=== PATIENT | female | born 1955 | race Two or more races ===

== ENCOUNTER 2016-02-29 08:42 | Emergency (ER) | payer MEDICAID, OTHER ==
[~2016-02-29] VITALS: Ht 154.9 cm; Wt 69.4 kg
[2016-02-29] MEDS ORDERED: TRIA1CAP6 PO (09:26)
[2016-02-29] MEDS ORDERED: AMLO5TAB2 PO (09:26)
[2016-02-29] MEDS ORDERED: BENA20TA2 PO (09:26)
[2016-02-29] MEDS ORDERED: KETOROLAC TROMETHAMINE 15 MG/ML VIAL ONE ×2 (09:58→11:45)
[2016-02-29] MEDS ORDERED: IV SET PRIMARY 1 EA INFUS.SET MC ONE (09:58)
[2016-02-29] MEDS ORDERED: IV NS 0.9% 1,000 ML ONE (09:58)
[2016-02-29] MEDS ORDERED: ONDANSETRON HCL/PF 4 MG/2 ML VIAL ONE (09:58)
[2016-02-29] MEDS ORDERED: KETOROLAC TROMETHAMINE INJ 30 MG/ML VIAL IV ONE (10:00)
[2016-02-29] MEDS ORDERED: IV NS 0.9% 500 ML BAG IV ONE (10:00)
[2016-02-29] MEDS ORDERED: ONDANSETRON HCL/PF 4 MG/2 ML VIAL IVP ONE (10:00)
[2016-02-29 10:08] LABS: BASOPHILS % (AUTO) 0.2 % (0.0-2.0); DIFF TOTAL % 100 %; EOSINOPHILS # (AUTO) 0.1 /CMM (0.0-0.7); EOSINOPHILS % (AUTO) 1.3 % (0.0-6.0); HEMATOCRIT 41 % (33-45); HEMOGLOBIN 14.1 g/dL (11.5-14.8); LYMPHOCYTES # (AUTO) 1.2 /CMM (0.8-4.8); LYMPHOCYTES % (AUTO) 24.7 % (20.0-44.0); MEAN CORPUSCULAR HEMOGLOBIN 29 PG (26.0-33.0); MEAN CORPUSCULAR HGB CONC 35 g/dl (31.0-36.0); MEAN CORPUSCULAR VOLUME 85 fL (82-100); MONOCYTES # (AUTO) 0.4 /CMM (0.1-1.30); MONOCYTES % (AUTO) 7.6 % (2.0-12.0); NEUTROPHILS # (AUTO) 3.3 /CMM (1.8-8.9); NEUTROPHILS % (AUTO) 66.2 % (43.0-81.0); PLATELET COUNT (AUTO) 249 /CMM (150-450); RED BLOOD CELL COUNT(AUTO) 4.83 MIL/uL (4.0-5.2); WHITE BLOOD COUNT (AUTO) 4.9 K/uL (4.3-11.0)
[2016-02-29 10:13] LABS: KETONES,URINE NEGATIVE (NEGATIVE); LEUKOCYTE ESTERASE ,URINE NEGATIVE (NEGATIVE); PH,URINE 6.5 (5.0-8.0)
[2016-02-29 10:14] LABS: ADD UA MICROSCOPIC YES
[2016-02-29 10:16] LABS: CALCIUM, SERUM 8.5 mg/dL (8.5-10.1); CREATININE 0.7 mg/dL (0.6-1.3); POTASSIUM 3.6 mmol/L (3.5-5.1)
[2016-02-29 10:20] LABS: ADD URINE CULTURE NO; RBC,URINE 0-3 /HPF (0-2); WBC,URINE NONE SEEN /HPF (0-3)
[2016-02-29 10:21] LABS: ALBUMIN 3.6 g/dL (3.4-5.0); BILIRUBIN,DIRECT 0.1 mg/dL (0.0-0.2); BILIRUBIN,TOTAL 0.6 mg/dL (0.2-1.0); INDIRECT BILIRUBIN 0.5 mg/dL (0.0-1.1); TOTAL PROTEIN, SERUM 7.8 g/dL (6.4-8.2)
[2016-02-29 12:45] VITALS: BP 154/84
== END 2016-02-29 12:48 | disposition home or self-care (01) ==
LOC: ER 08:44
DX: R10.11 Right upper quadrant pain (principal); I10 Essential (primary) hypertension; Z98.890 Other specified postprocedural states
CPT/HCPCS: 36415; 74176; 76705; 80048; 80076; 81001; 83690; 85025; 96374; 96375; 99285; A4606; J1885 ×2; J2405; J7030; Z7610; 81000-TC

== ENCOUNTER 2020-11-03 17:29 | Emergency (ER) | payer MEDICAID, OTHER ==
[~2020-11-03] VITALS: Ht 152.4 cm; Wt 61.2 kg
[~2020-11-03 17:29] MED LIST: AMLO-212 PO; BENA20TA9 PO; TRIA1CAP6 PO
--- NOTE | 2020-11-03 18:42 | NUR ---
BIBS FOR C/O LUQ ABDOMINAL PAIN SINCE YESTERDAY. [employer]LE [employer]. THE PATIENT IS ALERT AND ORIENTED X4. IN ROOM AIR AND DENIES SOB. RESPIRATION REGULAR AND UNLABORED. THE PATIENT DENIES HAVING COUGH. ATTACHED TO THE MONITOR. WILL CONTINUE TO MONITOR THE PATIENT.
[2020-11-03 18:51] LABS: BILIRUBIN,URINE SMALL (NEGATIVE); COLOR,URINE ORANGE (YELLOW); LEUKOCYTE ESTERASE ,URINE Negative (NEGATIVE); NITRITE, URINE Negative (NEGATIVE); PH,URINE 6.5 (5.0-8.0); PROTEIN,URINE 100 mg/dl (NEGATIVE); UGLUCOSE Negative (NEGATIVE)
[2020-11-03 19:00] LABS: BACTERIA,URINE Few /HPF (None Seen); HYALINE CASTS, URINE Few /LPF (None Seen); MUCUS,URINE Moderate /LPF (None Seen); RBC,URINE 0-2 /HPF (0-2); SQUAMOUS EPITHELIAL CELL,UR Few /HPF (None Seen)
--- NOTE | 2020-11-03 19:11 | NUR ---
STARTED LINE RAC G 20, BLOOD SPECIMEN COLLECTED, SPECIMEN SENT TO THE LAB. THE LINE IS SALINE LOCKED.
[2020-11-03] MEDS ORDERED: ONDANSETRON HCL/PF 4 MG/2 ML VIAL ONE (19:14)
[2020-11-03 19:15] LABS: BASOPHILS % (AUTO) 0.4 % (0.0-2.0); EOSINOPHILS % (AUTO) 0.1 % (0.0-6.0); HEMATOCRIT 25 % (33-45); HEMOGLOBIN 8.6 g/dL (11.5-14.8); LYMPHOCYTES # (AUTO) 0.2 K/uL (0.8-4.8); LYMPHOCYTES % (AUTO) 4.1 % (20.0-44.0); MEAN CORPUSCULAR HGB CONC 34 g/dl (31.0-36.0); MEAN CORPUSCULAR VOLUME 84 fL (82-100); MONOCYTES # (AUTO) 0.8 K/uL (0.1-1.30); MONOCYTES % (AUTO) 19.7 % (2.0-12.0); NEUTROPHILS % (AUTO) 75.7 % (43.0-81.0); PLATELET COUNT (AUTO) 113 K/uL (150-450); RED BLOOD CELL COUNT(AUTO) 2.99 MIL/uL (4.0-5.2)
[2020-11-03] MEDS ORDERED: ACETAMINOPHEN 325 MG TABLET ONE (19:15)
[2020-11-03] MEDS ORDERED: MORPHINE SULFATE INJ 2 MG/ML DISP.SYRIN ONE (19:15)
[2020-11-03 19:30] LABS: ALBUMIN 2.5 g/dL (3.4-5.0); BILIRUBIN,DIRECT 0.3 mg/dL (0.0-0.2); BILIRUBIN,TOTAL 0.7 mg/dL (0.2-1.0); CALCIUM, SERUM 7.9 mg/dL (8.5-10.1); CREATININE 0.8 mg/dL (0.6-1.3); POTASSIUM 3.5 mmol/L (3.5-5.1); TOTAL PROTEIN, SERUM 6.7 g/dL (6.4-8.2)
[2020-11-03] MEDS ORDERED: ACETAMINOPHEN 325 MG TABLET PO ONE (19:30)
[2020-11-03] MEDS ORDERED: IV NS 0.9% 1,000 ML IV ONE (19:30)
[2020-11-03] MEDS ORDERED: MORPHINE SULFATE INJ 2 MG/ML DISP.SYRIN IV ONE ×2 (19:30→23:30)
[2020-11-03] MEDS ORDERED: ONDANSETRON HCL/PF - ER 4 MG/2 ML VIAL IV ONE (19:30)
[2020-11-03] MEDS ORDERED: IOHEXOL-300 100 ML VIAL IV ONE (20:04)
[2020-11-03] MEDS ORDERED: IV NS 0.9% 250 ML IV ONE (20:04)
--- NOTE | 2020-11-03 20:10 | NUR ---
INFORMED DAUGHTER IN WAITING ROOM ABOUT STATUS OF PATIENT.
--- NOTE | 2020-11-03 20:14 | NUR ---
PATIENT TAKEN TO CT
[2020-11-03 20:22] LABS: NEUTROPHILS % (MANUAL) 76 (42-76)
[2020-11-03 20:23] LABS: EOSINOPHILS % (MANUAL) 1 % (0-4); LYMPHOCYTES % (MANUAL) 5 % (16-48); MONOCYTES % (MANUAL) 18 % (0-11.0)
[2020-11-03] MEDS ORDERED: PIPERACILLIN /TAZOBACTAM 3.375 G VIAL IV ONE (21:44)
[2020-11-03] MEDS ORDERED: PIPERACILLIN /TAZOBACTAM 3.375 G in IV D5W 50 ML IV ONE (22:00)
--- NOTE | 2020-11-04 01:03 | NUR ---
PT ACCEPTED TO [facility] ROOM 415-A NUMBER FOR REPORT IS . UNDER DR MICHELLE VILLASEÑOR AT [facility].
--- NOTE | 2020-11-04 01:06 | NUR ---
PT WILL BE TRANSPORTED TO [facility]IA [facility] IN 75 TO 90 MINS.
[2020-11-04] MEDS ORDERED: MORPHINE SULFATE INJ 2 MG/ML DISP.SYRIN ONE (01:41)
[2020-11-04 01:47] VITALS: BP 136/70
--- NOTE | 2020-11-04 02:03 | NUR ---
REPORT GIVEN TO WAITING FOR TRANSPORT. Addendum: 11/04/20 at 0225 by RANDALL DOLLY SALAZAR RECEIVED REPORT.
--- NOTE | 2020-11-04 03:14 | NUR ---
REPORT GIVEN TO EMT. PATIENT TRANSFERED TO [facility]
== END 2020-11-04 03:18 | disposition short-term general hospital (02) ==
LOC: ER 17:36
DX: R10.12 Left upper quadrant pain (principal); D61.818 Other pancytopenia; R16.1 Splenomegaly, not elsewhere classified; K76.9 Liver disease, unspecified; D73.89 Other diseases of spleen; R94.31 Abnormal electrocardiogram [ECG] [EKG]; Z20.822 Contact with and (suspected) exposure to COVID-19; E86.0 Dehydration; R11.0 Nausea; R50.9 Fever, unspecified; J98.11 Atelectasis; Z98.82 Breast implant status; I11.9 Hypertensive heart disease without heart failure
CPT/HCPCS: 36415; 71045; 74177; 76705; 80048; 80076; 81001; 83605; 83690; 84145; 84484; 85007; 85025; 85730; 87040 ×2; 87086; 87426; 93005; 96361; 96365; 96375; 96376; 99291; C9803; J2270 ×2; J2405; J2543; J7030; J7050; Q9967